=== PATIENT | male | born 1965 | race Caucasian/White ===

== ENCOUNTER 2019-01-11 12:37 | Outpatient (CLI) | payer BC ==
--- NOTE | 2019-01-11 13:07 | RAD ---
CERVICAL SPINE THREE VIEWS: HISTORY: Cervical pain. Right shoulder and neck pain since July. TECHNIQUE: The exam includes neutral, flexion, and extension lateral views. FINDINGS: C7-T1 is obscured on the lateral view. No significant malalignment. Mild disk osteophytosis and bina e facet arthrosis. No prevertebral soft tissue swelling. No abnormal translation between flexion an d extension. IMPRESSION: Minimal changes of spondylosis. No abnormal translation between flexion and extension. POS: C
--- NOTE | 2019-01-11 13:56 | MRI ---
MR CERVICAL SPINE WITHOUT CONTRAST INDICATION: Right anterior shoulder pain and neck pain TECHNIQUE: Multiplanar multisequence MR images were obtained of the cervical spine without contrast. COMPARISON: Cervical spine radiograph dated January 11, 2019 FINDINGS: Posterior fossa: Within normal limits. Bone marrow signal intensity: Normal Spinal alignment: Normal. Craniocervical junction: Normal appearing. Prevertebral and perivertebral soft tissues: Visualized soft tissues appear within normal limits. Vertebral levels: C2-C3: There is mild right neural foraminal narrowing due to uncovertebral hypertrophy and facet join t change. C3-4: There is a right foraminal and right paracentral disc protrusion causing moderate to severe delmi rowing of the right C3-4 neural foramina. There is uncal vertebral hypertrophy and facet joint degenerative change inducing mild left neural foraminal narrowing. C4-5: There is a mild broad-based disc bulge with uncovertebral hypertrophy and facet joint degenera tive change inducing moderate bilateral neural foraminal narrowing. C5-C6: There is uncovertebral hypertrophy and facet joint degenerative change inducing moderate right neural foraminal narrowing. There is mild central canal narrowing without cord compression due to a broad-based disc bulge. C6-C7:, There is a broad-based disc bulge with uncovertebral hypertrophy and facet joint degenerative changes inducing mild to moderate right and mild left neural foraminal narrowing. There is mild central canal narrowing without cord compression. C7-T1: No appreciable central canal or neuroforaminal narrowing. IMPRESSION: 1. Multilevel spondylosis of the cervical spine. 2. Moderate to severe right C3-4 neural foraminal due to right paracentral right foraminal disc protr usion. 3. Moderate bilateral neural foraminal narrowing at C4-5 due to uncovertebral hypertrophy and facet j oint degenerative change. 4. Mild central canal narrowing and moderate right neural foraminal narrowing at C5-6. 5. [id number] right neural foraminal narrowing and mild central canal narrowing at C6-7.
== END 2019-01-11 12:38 | disposition home or self-care (01) ==
LOC: TBSIIMAG 12:37
PROVIDERS: ATTEND Neurological Surgery
DX: M25.511 Pain in right shoulder (principal); M54.2 Cervicalgia; M47.812 Spondylosis without myelopathy or radiculopathy, cervical region; M50.21 Other cervical disc displacement, high cervical region; M48.02 Spinal stenosis, cervical region
CPT/HCPCS: 72040; 72141